=== PATIENT | male | born 1960 | race Caucasian/White ===

== ENCOUNTER 2018-08-19 06:05 | Day surgery (SDC) | payer OTHER ==
[~2018-08-19 06:05] MED LIST: LISINOPRIL10 MG PO; PROTONIX20 MG PO
[2018-08-19] MEDS ORDERED: PERCOCET 5-3251 EACH PO (16:00)
[2018-08-19] MEDS ORDERED: COLACE100 MG PO (16:01)
[2018-08-19] MEDS ORDERED: NEURONTIN300 MG PO (16:02)
== END 2018-08-19 17:50 | disposition home or self-care (01) ==
LOC: CIR.AMB 06:05
DX: K40.20 Bilateral inguinal hernia, without obstruction or gangrene, not specified as recurrent (principal)

== ENCOUNTER → 2019-11-13 07:51 | Outpatient (CLI) | payer OTHER ==
[~2019-11-13 07:51] MED LIST changes: +ADULT ASPIRIN81 MG PO; +COLACE100 MG PO; +LIPITOR20 MG PO; +NEURONTIN300 MG PO; +PERCOCET 5-3251 EACH PO; +TRICOR48 MG PO
== END | disposition home or self-care (01) ==
LOC: LAB 07:51
PROVIDERS: ATTEND Urology
DX: E11.9 Type 2 diabetes mellitus without complications (principal); N39.0 Urinary tract infection, site not specified; D68.8 Other specified coagulation defects; I11.0 Hypertensive heart disease with heart failure

== ENCOUNTER → 2019-11-15 10:30 | Outpatient (CLI) | payer OTHER | END | disposition home or self-care (01) | LOC: EKG 10:30 | PROVIDERS: ATTEND Urology | DX: I10 Essential (primary) hypertension (principal); Z01.818 Encounter for other preprocedural examination; E11.9 Type 2 diabetes mellitus without complications ==

== ENCOUNTER 2019-11-24 11:51 | Day surgery (SDC) | payer OTHER | END 2019-11-24 20:00 | disposition home or self-care (01) | LOC: CIR.AMB 11:51 | PROVIDERS: ATTEND Urology | DX: N43.2 Other hydrocele (principal) ==